=== PATIENT | female | born 1960 | race Two or more races ===

== ENCOUNTER → 2018-05-14 | Outpatient (CLI) | payer BC ==
[2018-05-14 12:15] LABS: Basophils # (auto) 0.1 uL; Eosinophils # (auto) 0.1 uL; Eosinophils % (auto) 2.8 % (0.0-7.0); Hematocrit 44.2 % (36.0-46.0); Hemoglobin 14.6 g/dL (12.2-16.2); Lymphocytes # (auto) 1.5 uL; Lymphocytes % (auto) 29.6 % (10.0-50.0); Mean Corpuscular Hemoglobin 32.4 pg (28.0-32.0); Mean Corpuscular Hgb Conc. 33.1 g/dL (32.0-36.0); Monocytes # (auto) 0.4 uL; Monocytes % (auto) 7.4 % (0.0-12.0); Neutrophils # (auto) 3.1 uL; Neutrophils % (auto) 59.2 % (37.0-80.0); Nucleated Red Blood Cells % 0.1 %; Platelet Count (auto) 263 10^3/uL (140-450); Red Blood Cells 4.51 10^6/uL (4.0-5.20); Red Cell Distribution Width 13.6 % (11.8-14.3); White Blood Cell 5.2 10^3/uL (4.4-10.8)
[2018-05-14 12:49] LABS: Potassium 4.1 mmol/L (3.5-5.1)
[2018-05-14 12:58] LABS: Albumin 3.8 g/dL (3.4-5.0); BUN/Creatinine Ratio 12.5; Bilirubin, Total 0.3 mg/dL (0.2-1.0); Calcium 8.7 mg/dL (8.5-10.1); Total Protein 7.5 g/dL (6.4-8.2)
== END | disposition home or self-care (01) ==
LOC: LAB 11:31
PROVIDERS: ATTEND Internal Medicine
DX: Z00.01 Encounter for general adult medical examination with abnormal findings (principal); E78.5 Hyperlipidemia, unspecified
CPT/HCPCS: 36415; 80053; 80061; 83036; 85025

== ENCOUNTER → 2018-07-23 | Outpatient (CLI) | payer BC ==
[~2018-07-23] VITALS: Ht 177.8 cm; Wt 93.0 kg
== END | disposition home or self-care (01) ==
LOC: Rad HDHVI 07:32
PROVIDERS: ATTEND Internal Medicine Cardiovascular Disease
DX: I08.1 Rheumatic disorders of both mitral and tricuspid valves (principal); I20.9 Angina pectoris, unspecified; R74.8 Abnormal levels of other serum enzymes; K57.90 Diverticulosis of intestine, part unspecified, without perforation or abscess without bleeding
CPT/HCPCS: 78452; 93017; 93306; 96374; A9500

== ENCOUNTER → 2018-09-07 | Outpatient (CLI) | payer BC | END | disposition home or self-care (01) | LOC: LAB 16:27 | PROVIDERS: ATTEND Physician Assistant | DX: E78.5 Hyperlipidemia, unspecified (principal); F41.9 Anxiety disorder, unspecified; R53.83 Other fatigue | CPT/HCPCS: 36415; 82306; 82670; 84443 ==

== ENCOUNTER → 2019-02-16 | Outpatient (CLI) | payer BC ==
[2019-02-16 10:29] LABS: Follicle Stimulating Hormone 37.2 IU/L (SEE BELOW); Leuteinizing Hormone 15.1 IU/L
== END | disposition home or self-care (01) ==
LOC: LAB 09:38
PROVIDERS: ATTEND Specialist
DX: N95.1 Menopausal and female climacteric states (principal)
CPT/HCPCS: 36415; 82670; 83001; 83002; 84443; 86141

== ENCOUNTER 2019-04-10 17:59 | Emergency (ER) | payer BC ==
[~2019-04-10] VITALS: Ht 177.8 cm; Wt 93.0 kg
[2019-04-10 18:30] LABS: Basophils # (auto) 0 uL; Basophils % (auto) 0.6 % (0.0-2.0); Eosinophils # (auto) 0.3 uL; Eosinophils % (auto) 3.7 % (0.0-7.0); Hematocrit 42.1 % (36.0-46.0); Hemoglobin 14.1 g/dL (12.2-16.2); Lymphocytes # (auto) 1.5 uL; Lymphocytes % (auto) 22.5 % (10.0-50.0); Mean Corpuscular Hemoglobin 32.8 pg (28.0-32.0); Mean Corpuscular Hgb Conc. 33.4 g/dL (32.0-36.0); Mean Corpuscular Volume 98.1 fL (80.0-100.0); Monocytes # (auto) 0.4 uL; Monocytes % (auto) 5.2 % (0.0-12.0); Neutrophils # (auto) 4.7 uL; Nucleated Red Blood Cells % 0.1 %; Platelet Count (auto) 270 10^3/uL (140-450); Red Blood Cells 4.29 10^6/uL (4.0-5.20); Red Cell Distribution Width 12.7 % (11.8-14.3); White Blood Cell 6.9 10^3/uL (4.4-10.8)
[2019-04-10 18:47] LABS: Anion Gap 4 (5-15); Blood Urea Nitrogen 17 mg/dL (7-18); Calcium 9.3 mg/dL (8.5-10.1); Carbon Dioxide 27 mmol/L (21-32); Chloride 108 mmol/L (98-107); Glucose 100 mg/dL (74-106); Potassium 3.9 mmol/L (3.5-5.1); Sodium 139 mmol/L (136-145)
[2019-04-10 18:55] LABS: Alanine Aminotransferase 29 U/L (13-56); Alkaline Phosphatase 85 U/L (45-117); Aspartate Aminotransferase 27 U/L (15-37); BUN/Creatinine Ratio 20.2; Bilirubin, Total 0.3 mg/dL (0.2-1.0); GFR African American 90 mL/min; GFR Non-African American 74 mL/min; Total Protein 7.8 g/dL (6.4-8.2)
[2019-04-10 21:15] VITALS: BP 121/56
== END 2019-04-10 21:38 | disposition home or self-care (01) ==
LOC: ER 17:59
DX: R07.89 Other chest pain (principal); M54.6 Pain in thoracic spine
CPT/HCPCS: 36415; 71046; 80053; 84484; 85025

== ENCOUNTER 2019-09-20 07:11 | Inpatient (IN) | payer BC ==
[2019-09-16 11:00] LABS: Basophils # (auto) 0 10 ^3/uL (0-0.2); Basophils % (auto) 0.5 % (0.0-2.0); Eosinophils # (auto) 0.1 10 ^3/uL (0-0.8); Eosinophils % (auto) 1.1 % (0.0-7.0); Hematocrit 40.8 % (36.0-46.0); Hemoglobin 13.6 g/dL (12.2-16.2); Lymphocytes # (auto) 1.5 10 ^3/uL (0.4-5.4); Lymphocytes % (auto) 27.1 % (10.0-50.0); Mean Corpuscular Hemoglobin 32.7 pg (28.0-32.0); Mean Corpuscular Hgb Conc. 33.4 g/dL (32.0-36.0); Monocytes # (auto) 0.4 10 ^3/uL (0-1.3); Neutrophils # (auto) 3.4 10 ^3/uL (1.6-8.6); Neutrophils % (auto) 63.3 % (37.0-80.0); Nucleated Red Blood Cells % 0.1 %; Platelet Count (auto) 283 10^3/uL (140-450); Red Blood Cells 4.17 10^6/uL (4.0-5.20); Red Cell Distribution Width 12.8 % (11.8-14.3); White Blood Cell 5.4 10^3/uL (4.4-10.8)
[2019-09-16 11:08] LABS: Urine Bacteria NONE SEEN /hpf (None Seen); Urine Blood Negative /uL (Negative); Urine Specific Gravity 1.013 (1.001-1.035); Urine WBC <1 /hpf (0 - 5)
[2019-09-16 11:13] LABS: INR 1.01 (0.9-1.15); Partial Thromboplastin Time 27.1 sec (23.64-32.05)
[2019-09-16 11:24] LABS: Potassium 3.8 mmol/L (3.5-5.1)
[2019-09-16 11:39] LABS: Albumin 3.9 g/dL (3.4-5.0); BUN/Creatinine Ratio 12.5; Bilirubin, Total 0.5 mg/dL (0.2-1.0); Calcium 8.8 mg/dL (8.5-10.1); Total Protein 7.7 g/dL (6.4-8.2)
[~2019-09-20] VITALS: Ht 177.8 cm; Wt 110.0 kg
[~2019-09-20 07:11] MED LIST: ALPR0.5T PO; CONJ.6252 PO; TRAM50TA2 PO
[2019-09-20] MEDS ORDERED: CELECOXIB 100 MG CAP ONE (08:25)
[2019-09-20] MEDS ORDERED: PREGABALIN CAPSULE 75 MG CAP ONE (08:25)
[2019-09-20] MEDS ORDERED: ACETAMINOPHEN IV 100 ML IV ONE (08:25)
[2019-09-20] MEDS ORDERED: ACETAMINOPHEN IV 1000 MG/100ML (10MG/ML) IV ONE (08:30)
[2019-09-20] MEDS ORDERED: PREGABALIN CAPSULE 75 MG CAP PO ONE (08:30)
[2019-09-20] MEDS ORDERED: VANCOMYCIN HCL 1000 MG VL ONE (09:30)
[2019-09-20] MEDS ORDERED: BUPIVACAINE W/ EPINEPH 0.25% INJ 50ML MDV ONE (09:33)
[2019-09-20] MEDS ORDERED: TRANEXAMIC ACID 20 ML ONE (09:33)
[2019-09-20] MEDS ORDERED: KETOROLAC TROMETH 30 MG/ML 1ML VIAL ONE (09:35)
[2019-09-20] MEDS ORDERED: MIDAZOLAM HCL 1MG/1ML-2 ML VIAL ONE (09:41)
[2019-09-20] MEDS ORDERED: MORPHINE SULF(PF) 0.5MG/ML 10ML VIAL ONE (09:41)
[2019-09-20] MEDS ORDERED: fentaNYL CITRATE 100 MCG/2 ML VL ONE (09:41)
[2019-09-20] MEDS ORDERED: GLYCOPYRROLATE 0.2 MG/ML 1ML VIAL ONE (09:42)
[2019-09-20] MEDS ORDERED: PROPOFOL 10 MG/ML 20 ML IV ONE (09:42)
[2019-09-20] MEDS ORDERED: ePHEDrine SULFATE 50 MG/ML AMP ONE (09:42)
[2019-09-20] MEDS ORDERED: ONDANSETRON HCL 4 MG/2 ML VIAL ONE (09:42)
[2019-09-20] MEDS: ceFAZolin 1GM/50ML 50 ML IV ONE ×2 (09:51)
[2019-09-20] MEDS ORDERED: TETRACAINE 1% INJ 2 ML VIAL IJ ONE (09:54)
[2019-09-20] MEDS ORDERED: diphenhdrAMINE HCL 50 MG/1 ML VL ONE (10:14)
[2019-09-20] MEDS ORDERED: KETAMINE HCL 10 ML ONE (10:21)
[2019-09-20] MEDS ORDERED: LACTATED RINGER'S 1,000 ML IV SCH (11:41)
[2019-09-20] MEDS ORDERED: ALPRAZolam 0.5 MG TAB PO PRN ×2 (11:45)
[2019-09-20] MEDS ORDERED: MORPHINE SULF INJ 2 MG/ML SYRINGE 1ML IV PRN (11:45)
[2019-09-20] MEDS ORDERED: ACETAMINOPHEN 325 MG TAB PO PRN (11:45)
[2019-09-20] MEDS ORDERED: BISACODYL 5 MG EC TAB PO PRN (11:45)
[2019-09-20] MEDS ORDERED: NITROGLYCERIN 0.4 MG SL TAB SL PRN (11:45)
[2019-09-20] MEDS ORDERED: ONDANSETRON HCL 4 MG/2 ML VIAL IV PRN ×2 (11:45→12:45)
[2019-09-20] MEDS ORDERED: KETOROLAC TROMETH 30 MG/ML 1ML VIAL IV SCH (12:00)
[2019-09-20] MEDS ORDERED: MEPERIDINE HCL (25 MG/ML) 1ML VIAL ONE (12:14)
[2019-09-20] MEDS ORDERED: ENOXAPARIN SOD 40 MG/0.4 ML SYRINGE SC ONE (12:15)
[2019-09-20] MEDS ORDERED: FAMOTIDINE (10MG/ML) 2ML VL IV PRN (12:45)
[2019-09-20] MEDS ORDERED: NALBUPHINE HCL 10 MG/1ml INJECTION SUBCUT ONE (12:45)
[2019-09-20] MEDS ORDERED: NALOXONE HCL 0.4 MG/ML VIAL IV PRN (12:45)
[2019-09-20] MEDS ORDERED: diphenhdrAMINE HCL 50 MG/1 ML VL IV PRN (12:45)
[2019-09-20] MEDS ORDERED: DexAMETHasone SOD PHOS 10MG/1ML VIAL INJ IV PRN (12:45)
[2019-09-20] MEDS: HYDROmorphone HCL 2 MG/ML VL IV PRN ×2 (15:30→19:51)
--- NOTE | 2019-09-20 17:40 | NUR ---
OR ADMIT PATIENT BROUGHT TO ROOM 280B. VITALS STABLE. PATIENT PLACED ON OXYGEN, CONTINUOS PULSE OX. CPM TO LEFT LEG. DENIES DISCOMFORT. WILL CONTINUE TO MONITOR.
[2019-09-20] MEDS: ONDANSETRON HCL 4 MG/2 ML VIAL IV PRN ×2 (18:41→22:15)
--- NOTE | 2019-09-20 19:55 | NUR ---
PT ON CPM AT 45 DEGREES
[2019-09-20 19:58] VITALS: BP 141/79
[2019-09-20] MEDS: DOCUSATE SOD 100 MG CAP PO SCH (21:53)
[2019-09-20] MEDS: KETOROLAC TROMETH 30 MG/ML 1ML VIAL IV SCH (21:53)
[2019-09-20] MEDS: ceFAZolin 1GM/50ML 50 ML IV SCH ×2 (21:53→23:45)
[2019-09-20 22:00] VITALS: BP 111/88
[2019-09-20] MEDS: SODIUM CHLOR 0.9% PF (SALINE LOCK) 10ML VIAL/SYR IV SCH (22:02)
[2019-09-21] MEDS: HYDROcodone-ACET 5/325MG TAB PO PRN ×2 (02:41→10:43)
[2019-09-21] MEDS ORDERED: ceFAZolin 1GM/50ML 50 ML IV ONE (03:50)
[2019-09-21] MEDS: ceFAZolin 1GM/50ML 50 ML IV SCH (03:52)
[2019-09-21] MEDS: KETOROLAC TROMETH 30 MG/ML 1ML VIAL IV SCH ×4 (03:53→21:22)
[2019-09-21 05:00] VITALS: BP 116/59
[2019-09-21] MEDS: ONDANSETRON HCL 4 MG/2 ML VIAL IV PRN (05:27)
[2019-09-21] MEDS: HYDROmorphone HCL 2 MG/ML VL IV PRN (05:27)
--- NOTE | 2019-09-21 06:18 | NUR ---
[facility] CATH DISCONTINUED BY MARIAH OBANDO
[2019-09-21] MEDS: SODIUM CHLOR 0.9% PF (SALINE LOCK) 10ML VIAL/SYR IV SCH ×3 (06:19→22:33)
--- NOTE | 2019-09-21 06:31 | NUR ---
PT BACK ON CPM ANGLE INCREASED BY 15 DEGREES FROM 45 TO 60. PT TOLERATED IT WELL. LEFT KNEE DRESSING CLEAN DRY AND INTACT.
[2019-09-21 06:49] LABS: Hematocrit 34.4 % (36.0-46.0); Hemoglobin 11.7 g/dL (12.2-16.2)
[2019-09-21 07:07] LABS: Potassium 3.9 mmol/L (3.5-5.1)
--- NOTE | 2019-09-21 07:28 | NUR ---
Respiratory note: PT FOUND TO BE AWAKE/ALERT SITTING IN BED WITH NO NOTED DISTRESS. HR 78 RR 16 SPO2 98% ON 2L N/C. PT IS CONNECTED TO CONT BEDSIDE POX.
[2019-09-21 07:37] LABS: Albumin 3.2 g/dL (3.4-5.0); Bilirubin, Total 0.5 mg/dL (0.2-1.0); Calcium 8.2 mg/dL (8.5-10.1); Total Protein 6.4 g/dL (6.4-8.2)
[2019-09-21 09:00] VITALS: BP 106/66
[2019-09-21] MEDS: DOCUSATE SOD 100 MG CAP PO SCH ×2 (09:38→22:33)
[2019-09-21] MEDS: ENOXAPARIN SOD 40 MG/0.4 ML SYRINGE SC SCH (09:38)
--- NOTE | 2019-09-21 11:15 | NUR ---
Respiratory note: OK TO PULL BEDSIDE CONT POX PER RN MAYUR
[2019-09-21] MEDS ORDERED: HYDROmorphone HCL 2 MG/ML VL IV PRN (13:00)
[2019-09-21] MEDS: OXYCODONE W/ ACETAMINOPHEN 5/325MG TABLET PO PRN ×4 (13:30→23:36)
[2019-09-21 17:00] VITALS: BP 123/86
--- NOTE | 2019-09-21 18:51 | NUR ---
PATIENT CAN TAKE CPM MACHINE HOME ON DISCHARGE AND RETURN TO [facility] WHEN DONE WITH IT.
[2019-09-21] MEDS: traMADol HCL 50 MG TAB PO PRN (19:24)
[2019-09-21 20:00] VITALS: BP 115/65
--- NOTE | 2019-09-21 20:00 | NUR ---
Opening Shift Note Assumed care of patient, awake and alert. No S/S of distress/SOB or pain. Instructed on POC and to call for assist PRN, will continue to monitor for changes Q1hr and PRN.
--- NOTE | 2019-09-21 20:24 | NUR ---
RE PAIN PATIENT STATED "MY PAIN IS TOLERABLE, IM OKAY 04/26"
[2019-09-21 22:00] VITALS: BP 115/65
--- NOTE | 2019-09-21 23:36 | NUR ---
Pain Patient c/o pain 6/10 to left knee, pain medication administered.
--- NOTE | 2019-09-22 00:36 | NUR ---
Re Pain patient resting with eyes closed, no sign of pain or distress, will continue to monitor.
[2019-09-22] MEDS: traMADol HCL 50 MG TAB PO PRN ×2 (03:47→09:23)
--- NOTE | 2019-09-22 03:47 | NUR ---
Pain Patient c/o pain 3/10 to left knee, pain medication administered.
--- NOTE | 2019-09-22 04:47 | NUR ---
Re Pain patient resting with eyes closed, no sign of pain or distress
[2019-09-22 05:00] VITALS: BP 105/53
[2019-09-22] MEDS: SODIUM CHLOR 0.9% PF (SALINE LOCK) 10ML VIAL/SYR IV SCH (05:38)
[2019-09-22] MEDS: OXYCODONE W/ ACETAMINOPHEN 5/325MG TABLET PO PRN (05:39)
--- NOTE | 2019-09-22 05:39 | NUR ---
Pain Patient c/o pain 6/10 to left knee, pain medication administered.
--- NOTE | 2019-09-22 06:39 | NUR ---
Re Pain Patient resting with eyes closed, no sign of pain or distress. will continue to monitor.
--- NOTE | 2019-09-22 07:29 | NUR ---
Closing Note Patient status has not changed, endorsed care to dayshift nurse.
--- NOTE | 2019-09-22 07:35 | NUR ---
Opening Note Received report from cook fishing vessel RN. Patient is awake, alert and oriented x4. No signs or symptoms of distress noted at this time. Patient in on room air, respirations even and unlabored. Dressing to left knee is clean, dry and intact. Reviewed plan of care with patient, patient verbalized understanding. Bed in low and locked position, call light within reach. Will continue to monitor Q1 hour and PRN.
[2019-09-22 08:18] LABS: Hematocrit 34.1 % (36.0-46.0); Hemoglobin 11.3 g/dL (12.2-16.2)
[2019-09-22 09:00] VITALS: BP 137/80
--- NOTE | 2019-09-22 09:09 | NUR ---
Assessment Patient is a 59-year-old female who is alert and oriented. Prior to admission patient lived home with family and functioned independently. Per patient she will return home to her prior living arrangements post discharge and family will transport her home. Advised patient there is a social service consult for home health service for physical therapy, bed side commode and walker. Patient informed me she has a bed side commode and a walker for home use. Per patient she is on service with [facility] and would like to resume service with agency. Informed patient clinical information will be faxed agency. Informed patient she has a right to participate in all discharge planning. Patient verbalized understanding and agreed to discharge plan home. Faxed clinical information to [facility]. Per Vickie with [facility] they will resume service for patient within 24-48hrs upon d/c day. Informed Patient. Addendum: 09/22/19 at 0915 by ANA BARAHONA Amended: Links added.
[2019-09-22] MEDS: DOCUSATE SOD 100 MG CAP PO SCH (09:23)
[2019-09-22] MEDS: ENOXAPARIN SOD 40 MG/0.4 ML SYRINGE SC SCH (09:24)
--- NOTE | 2019-09-22 11:00 | NUR ---
Discharge Discharge instructions given as ordered. Encourage to follow up with PMD as instructed. All questions and concerns addressed. Patient verbalized understanding. Medication reconciliation form completed and copy given to patient. Telemetry unit returned to ICU. Per patient she arranged [facility] and all necessary equipment has been delivered to her home. Patient taken to vehicle via wheelchair with all personal belongings, accompanied by staff. No distress noted at time of departure. Prescriptions were filled at [facility].
== END 2019-09-22 11:00 | disposition home or self-care (01) | DRG 470 ==
LOC: OVERFLOW 07:11 → TELE-WESTW 17:37
PROVIDERS: ADMIT Orthopaedic Surgery Adult Reconstructive Orthopaedic Surgery; ATTEND Internal Medicine
PROC: 0SRD0J9 Replacement of Left Knee Joint with Synthetic Substitute, Cemented, Open Approach (ICD-10-PCS; principal; 2019-09-20 09:51)
DX: M17.12 Unilateral primary osteoarthritis, left knee (principal); F41.9 Anxiety disorder, unspecified; E66.9 Obesity, unspecified; Z20.828 Contact with and (suspected) exposure to other viral communicable diseases; Z68.34 Body mass index [BMI] 34.0-34.9, adult; Z88.2 Allergy status to sulfonamides
CPT/HCPCS: 36415; 73562; 80053; 81001; 85014; 85018; 85025; 85610; 85730; 86850; 86900; 86901; 97163; G0378; J0131; J0690; J1885; J2250; J2405; J2704

== ENCOUNTER → 2020-03-07 | Outpatient (CLI) | payer BC | END | disposition home or self-care (01) | LOC: LAB 12:04 | PROVIDERS: ATTEND Physician Assistant | DX: Z20.828 Contact with and (suspected) exposure to other viral communicable diseases (principal) | CPT/HCPCS: 36415; 87426; C9803; U0003 ==

== ENCOUNTER → 2021-01-03 | Outpatient (CLI) | payer BC ==
[2021-01-03 08:47] LABS: Basophils # (auto) 0 10 ^3/uL (0-0.2); Basophils % (auto) 0.8 % (0.0-2.0); Eosinophils # (auto) 0.1 10 ^3/uL (0-0.8); Eosinophils % (auto) 1.1 % (0.0-7.0); Hematocrit 39.5 % (36.0-46.0); Hemoglobin 13.3 g/dL (12.2-16.2); Lymphocytes # (auto) 1.1 10 ^3/uL (0.4-5.4); Lymphocytes % (auto) 23.1 % (10.0-50.0); Mean Corpuscular Hemoglobin 33.3 pg (28.0-32.0); Mean Corpuscular Hgb Conc. 33.6 g/dL (32.0-36.0); Mean Corpuscular Volume 99.1 fL (80.0-100.0); Monocytes # (auto) 0.3 10 ^3/uL (0-1.3); Monocytes % (auto) 6.7 % (0.0-12.0); Neutrophils # (auto) 3.3 10 ^3/uL (1.6-8.6); Neutrophils % (auto) 68.3 % (37.0-80.0); Red Blood Cells 3.98 10^6/uL (4.0-5.20); White Blood Cell 4.9 10^3/uL (4.4-10.8)
[2021-01-03 10:00] LABS: Cholesterol 209 mg/dL (< 200); HDL Cholesterol 79 mg/dL (40-59); LDL Cholesterol 116 mg/dL (< 100); Triglycerides 76 mg/dL (< 150)
[2021-01-03 10:05] LABS: Leuteinizing Hormone 26.6 IU/L
[2021-01-03 10:06] LABS: Follicle Stimulating Hormone 34.1 IU/L (SEE BELOW)
== END | disposition home or self-care (01) ==
LOC: LAB 08:24
PROVIDERS: ATTEND Obstetrics & Gynecology
DX: Z00.00 Encounter for general adult medical examination without abnormal findings (principal); N95.1 Menopausal and female climacteric states
CPT/HCPCS: 36415; 80061; 82670; 83001; 83002; 83036; 84403; 84443; 85025; 87086

== ENCOUNTER 2021-09-04 09:56 | Day surgery (SDC) | payer BC ==
[2021-08-31 09:18] LABS: Basophils # (auto) 0 10 ^3/uL (0-0.2); Basophils % (auto) 0.3 % (0.0-2.0); Eosinophils # (auto) 0.1 10 ^3/uL (0-0.8); Eosinophils % (auto) 0.9 % (0.0-7.0); Hematocrit 41.6 % (36.0-46.0); Hemoglobin 14.2 g/dL (12.2-16.2); Lymphocytes # (auto) 1.2 10 ^3/uL (0.4-5.4); Lymphocytes % (auto) 21.1 % (10.0-50.0); Mean Corpuscular Hemoglobin 33.2 pg (28.0-32.0); Mean Corpuscular Hgb Conc. 34.1 g/dL (32.0-36.0); Mean Corpuscular Volume 97.2 fL (80.0-100.0); Monocytes # (auto) 0.4 10 ^3/uL (0-1.3); Monocytes % (auto) 6.9 % (0.0-12.0); Neutrophils # (auto) 4.2 10 ^3/uL (1.6-8.6); Neutrophils % (auto) 70.8 % (37.0-80.0); Red Blood Cells 4.28 10^6/uL (4.0-5.20); Red Cell Distribution Width 12.6 % (11.8-14.3); White Blood Cell 5.9 10^3/uL (4.4-10.8)
[2021-08-31 09:49] LABS: Albumin 4.1 g/dL (3.4-5.0); Calcium 9.2 mg/dL (8.5-10.1); INR 0.98 (0.9-1.15); Partial Thromboplastin Time 26.9 sec (23.6-33.0); Potassium 4.4 mmol/L (3.5-5.1)
[2021-08-31 09:53] LABS: BUN/Creatinine Ratio 9.8; Bilirubin, Total 0.4 mg/dL (0.2-1.0)
[~2021-09-04] VITALS: Ht 177.8 cm; Wt 94.8 kg
[~2021-09-04 09:56] MED LIST changes: -TRAM50TA2 PO
[2021-09-04] MEDS ORDERED: diphenhdrAMINE HCL 50 MG/1 ML VL ONE (10:17)
[2021-09-04] MEDS ORDERED: MIDAZOLAM HCL 5 MG/ML-1ML VIAL ONE (10:17)
[2021-09-04] MEDS ORDERED: SODIUM CHLORIDE LOCK 10 ML ONE (10:17)
[2021-09-04] MEDS ORDERED: fentaNYL CITRATE 100 MCG/2 ML VL ONE ×2 (10:18→11:01)
[2021-09-04] MEDS ORDERED: MIDAZOLAM HCL 2MG/2ML 2ml VIAL (1mg/ml) ONE (11:01)
[2021-09-04] MEDS ORDERED: MEPERIDINE HCL (25 MG/ML) 1ML VIAL ONE (11:01)
[2021-09-04] MEDS ORDERED: DexAMETHasone SOD PHOS 10MG/1ML VIAL INJ ONE (11:59)
[2021-09-04] MEDS ORDERED: PROPOFOL 10 MG/ML 20 ML IV ONE (11:59)
[2021-09-04 12:30] VITALS: BP 118/70
== END 2021-09-04 12:40 | disposition home or self-care (01) ==
LOC: GI 09:56
PROVIDERS: ATTEND Internal Medicine Gastroenterology
DX: Z12.11 Encounter for screening for malignant neoplasm of colon (principal); D12.0 Benign neoplasm of cecum; K57.30 Diverticulosis of large intestine without perforation or abscess without bleeding; K64.8 Other hemorrhoids; F41.9 Anxiety disorder, unspecified; F32.A Depression, unspecified; Z96.653 Presence of artificial knee joint, bilateral; Z98.891 History of uterine scar from previous surgery; Z88.1 Allergy status to other antibiotic agents; Z20.822 Contact with and (suspected) exposure to COVID-19
CPT/HCPCS: 36415; 45385; 80053; 85025; 85610; 85730; 88305; J1100; J2175; J2250; J2704; J3010; J7030; U0003; 99152; 99153

== ENCOUNTER → 2022-05-20 | Outpatient (CLI) | payer BC | END | disposition home or self-care (01) | LOC: LAB 08:23 | PROVIDERS: ATTEND Obstetrics & Gynecology | DX: Z79.890 Hormone replacement therapy (principal) | CPT/HCPCS: 36415; 82306; 82670; 84403 ==

== ENCOUNTER 2022-12-02 10:54 | Emergency (ER) | payer BC ==
[~2022-12-02] VITALS: Ht 177.8 cm; Wt 94.0 kg
[2022-12-02 12:07] VITALS: BP 148/80; PULSE 88; RESP 18; TEMP 97.6; O2SAT 95
== END 2022-12-02 14:07 | disposition home or self-care (01) ==
LOC: ER 10:54
DX: M25.552 Pain in left hip (principal); M25.562 Pain in left knee; W19.XXXA Unspecified fall, initial encounter; Y93.89 Activity, other specified; Y92.89 Other specified places as the place of occurrence of the external cause; Y99.8 Other external cause status; Z88.2 Allergy status to sulfonamides
CPT/HCPCS: 73562; 73700

== ENCOUNTER → 2023-03-03 | Outpatient (CLI) | payer BC ==
[2023-03-03 07:09] LABS: Urine Bacteria FEW /hpf (None Seen); Urine Blood Negative /uL (Negative); Urine Clarity Clear (Clear); Urine Color Yellow (Yellow); Urine Mucus FEW (None Seen); Urine Protein, UAD 1+ (Negative); Urine Specific Gravity 1.034 (1.001-1.035); Urine WBC 1 /hpf (0 - 5)
[2023-03-03 07:22] LABS: Basophils # (auto) 0 10 ^3/uL (0-0.2); Basophils % (auto) 0.5 % (0.0-2.0); Eosinophils # (auto) 0.1 10 ^3/uL (0-0.8); Hematocrit 40.8 % (36.0-46.0); Hemoglobin 13.8 g/dL (12.2-16.2); Lymphocytes # (auto) 1.6 10 ^3/uL (0.4-5.4); Lymphocytes % (auto) 28.8 % (10.0-50.0); Mean Corpuscular Hemoglobin 33.8 pg (28.0-32.0); Mean Corpuscular Hgb Conc. 33.7 g/dL (32.0-36.0); Mean Corpuscular Volume 100.1 fL (80.0-100.0); Monocytes # (auto) 0.5 10 ^3/uL (0-1.3); Monocytes % (auto) 9.2 % (0.0-12.0); Neutrophils # (auto) 3.4 10 ^3/uL (1.6-8.6); Neutrophils % (auto) 59.5 % (37.0-80.0); Red Blood Cells 4.08 10^6/uL (4.0-5.20); Red Cell Distribution Width 13.3 % (11.8-14.3); White Blood Cell 5.7 10^3/uL (4.4-10.8)
[2023-03-03 07:35] LABS: Alanine Aminotransferase 57 U/L (7-40); Albumin 4.3 g/dL (3.2-4.8); Alkaline Phosphatase 80 U/L (46-116); Aspartate Aminotransferase 28 U/L (13-40); BUN/Creatinine Ratio 17.4 (10.0-20.0); Blood Urea Nitrogen 12 mg/dL (9-23); Calcium 9.5 mg/dL (8.5-10.1); Chloride 107 mmol/L (98-107); Cholesterol 202 mg/dL (< 200); Glucose 96 mg/dL (74-106); HDL Cholesterol 55 mg/dL (40-59); LDL Cholesterol 138 mg/dL (< 100); Potassium 4.3 mmol/L (3.5-5.1); Sodium 140 mmol/L (136-145); Triglycerides 99 mg/dL (< 150)
[2023-03-03 07:36] LABS: Anion Gap 7 (5-15); Bilirubin, Total 0.3 mg/dL (0.2-1.0); Carbon Dioxide 26 mmol/L (20-30); Total Protein 6.8 g/dL (5.7-8.2)
== END | disposition home or self-care (01) ==
LOC: LAB 06:27
PROVIDERS: ATTEND Nurse Practitioner
DX: I10 Essential (primary) hypertension (principal); E78.5 Hyperlipidemia, unspecified; R79.89 Other specified abnormal findings of blood chemistry
CPT/HCPCS: 36415; 80053; 80061; 81001; 83036; 84443; 85025

== ENCOUNTER 2023-03-31 06:03 | Inpatient (IN) | payer BC ==
[2023-03-27 10:07] LABS: Urine Epithelial Cast None Seen /hpf (<5)
[2023-03-27 10:14] LABS: Basophils # (auto) 0 10 ^3/uL (0-0.2); Basophils % (auto) 0.2 % (0.0-2.0); Eosinophils # (auto) 0.1 10 ^3/uL (0-0.8); Hematocrit 42.5 % (36.0-46.0); Hemoglobin 14.4 g/dL (12.2-16.2); Lymphocytes % (auto) 12.4 % (10.0-50.0); Mean Corpuscular Hemoglobin 33.7 pg (28.0-32.0); Mean Corpuscular Hgb Conc. 33.9 g/dL (32.0-36.0); Mean Corpuscular Volume 99.3 fL (80.0-100.0); Monocytes # (auto) 0.6 10 ^3/uL (0-1.3); Monocytes % (auto) 7.8 % (0.0-12.0); Neutrophils # (auto) 6.3 10 ^3/uL (1.6-8.6); Neutrophils % (auto) 78.6 % (37.0-80.0); Red Blood Cells 4.28 10^6/uL (4.0-5.20); Red Cell Distribution Width 12.8 % (11.8-14.3); White Blood Cell 8.1 10^3/uL (4.4-10.8)
[2023-03-27 10:36] LABS: INR 0.98 (0.9-1.15); Partial Thromboplastin Time 29.9 SEC (24.5-34.5); Prothrombin Time 10.3 sec (9.3-11.8)
[2023-03-27 11:09] LABS: Urine Bacteria NONE SEEN /hpf (None Seen); Urine Blood Negative /uL (Negative); Urine Clarity Clear (Clear); Urine Color Yellow (Yellow); Urine Mucus FEW (None Seen); Urine Protein, UAD TRACE (Negative); Urine Specific Gravity 1.029 (1.001-1.035); Urine WBC <1 /hpf (0 - 5)
[2023-03-27 11:24] LABS: Alanine Aminotransferase 22 U/L (7-40); Albumin 4.7 g/dL (3.2-4.8); Alkaline Phosphatase 89 U/L (46-116); Anion Gap 7 (5-15); Aspartate Aminotransferase 26 U/L (13-40); BUN/Creatinine Ratio 13.3 (10.0-20.0); Bilirubin, Total 0.6 mg/dL (0.2-1.0); Blood Urea Nitrogen 10 mg/dL (9-23); Carbon Dioxide 28 mmol/L (20-30); Chloride 103 mmol/L (98-107); Glucose 83 mg/dL (74-106); Potassium 4.1 mmol/L (3.5-5.1); Sodium 138 mmol/L (136-145); Total Protein 7.4 g/dL (5.7-8.2)
[2023-03-31] VITALS (12 sets, daily range): BP systolic 101–145; BP diastolic 56–84; PULSE 64–93; RESP 14–19; TEMP 97.6–98.8; O2SAT 93–100
[~2023-03-31] VITALS: Ht 175.3 cm; Wt 101.0 kg
[~2023-03-31 06:03] MED LIST changes: -ALPR0.5T PO; -CONJ.6252 PO; +PROG200C21 PO; +THYR60TA2 PO
[2023-03-31] MEDS ORDERED: ACETAMINOPHEN IV 1000 MG/100ML (10MG/ML) IV ONE (06:30)
[2023-03-31] MEDS ORDERED: PREGABALIN CAPSULE 75 MG CAP PO ONE (06:30)
[2023-03-31] MEDS ORDERED: CELECOXIB 100 MG CAP PO ONE (06:30)
[2023-03-31] MEDS ORDERED: TETRACAINE 1% INJ 2 ML VIAL IJ ONE ×2 (06:32→07:17)
[2023-03-31] MEDS ORDERED: SUCCINYLCHOLINE CHLORIDE 20 MG/ML 10ML VIAL IV ONE (06:32)
[2023-03-31] MEDS ORDERED: ROCURONIUM 10MG/ML 10ML VIAL IV ONE (06:32)
[2023-03-31] MEDS ORDERED: ceFAZolin 2 GM/D5W100ml 100 ML IV ONE (06:50)
[2023-03-31] MEDS ORDERED: TRANEXAMIC ACID 20 ML ONE (07:07)
[2023-03-31] MEDS ORDERED: BUPIVACAINE HCL 0 ML ONE (07:07)
[2023-03-31] MEDS ORDERED: LIDOCAINE W/ EPINEPHRINE 2% INJ 20ML VIAL ONE (07:07)
[2023-03-31] MEDS ORDERED: VANCOMYCIN HCL 1000 MG VL ONE (07:08)
[2023-03-31] MEDS ORDERED: KETOROLAC TROMETH 30 MG/ML 1ML VIAL ONE (07:19)
[2023-03-31] MEDS ORDERED: BUPIVACAINE HCL 0.25% P/F 10 ML VIAL ONE (07:21)
[2023-03-31] MEDS ORDERED: fentaNYL CITRATE 100 MCG/2 ML VL ONE (07:22)
[2023-03-31] MEDS ORDERED: MIDAZOLAM HCL 2MG/2ML 2ml VIAL (1mg/ml) ONE ×2 (07:22→09:05)
[2023-03-31] MEDS ORDERED: MORPHINE SULF PF 5 MG/10 ML VIAL ONE (07:23)
[2023-03-31] MEDS ORDERED: DexAMETHasone SOD PHOS 4 MG/1ML SDV INJ ONE (08:32)
[2023-03-31] MEDS ORDERED: SODIUM CHLORIDE LOCK 10 ML ONE (08:41)
[2023-03-31] MEDS ORDERED: ACETAMINOPHEN 325 MG TAB PO PRN (08:45)
[2023-03-31] MEDS ORDERED: MORPHINE SULFATE INJ 2 MG/ml SYRG IV PRN ×2 (08:45→10:15)
[2023-03-31] MEDS ORDERED: ONDANSETRON HCL 4 MG/2 ML VIAL IV PRN ×3 (08:45→09:45)
[2023-03-31] MEDS ORDERED: NITROGLYCERIN 0.4 MG SL TAB SL PRN ×2 (08:45→10:15)
[2023-03-31] MEDS: ceFAZolin 1GM/50ML 50 ML IV SCH ×3 (08:45→22:31)
[2023-03-31] MEDS: LACTATED RINGER'S 1,000 ML IV SCH ×2 (08:45→16:46)
[2023-03-31] MEDS ORDERED: DexAMETHasone SOD PHOS 10MG/1ML VIAL INJ ONE (08:49)
[2023-03-31] MEDS ORDERED: PROPOFOL 10 MG/ML 20 ML IV ONE (08:50)
[2023-03-31] MEDS ORDERED: MIDAZOLAM HCL 2MG/2ML 2ml VIAL (1mg/ml) IV PRN (09:45)
[2023-03-31] MEDS ORDERED: ePHEDrine SULFATE 50 MG/ML AMP IV PRN (09:45)
[2023-03-31] MEDS ORDERED: diphenhdrAMINE HCL 50 MG/1 ML VL IV PRN (09:45)
[2023-03-31] MEDS ORDERED: DexAMETHasone SOD PHOS 10MG/1ML VIAL INJ IV PRN (09:45)
[2023-03-31] MEDS ORDERED: HYDROmorphone HCL 2 MG/ML VL/or syr IV PRN (09:45)
[2023-03-31] MEDS ORDERED: NALOXONE HCL 0.4 MG/ML VIAL IV PRN (09:45)
[2023-03-31] MEDS ORDERED: LABETALOL HCL 5 MG/ML 4ML SYRINGE IV PRN (09:45)
[2023-03-31] MEDS: ENOXAPARIN SOD 40 MG/0.4 ML SYRINGE SC SCH (10:00)
[2023-03-31] MEDS: THYROID 60 MG TAB PO SCH (10:00)
[2023-03-31] MEDS: PROGESTERONE MICRONIZED 200 MG PO SCH (10:00)
[2023-03-31] MEDS: DOCUSATE SOD 100 MG CAP PO SCH ×2 (10:00→21:23)
[2023-03-31] MEDS ORDERED: PHENYLEPHRINE HCL 10 MG/ML VL IV ONE (13:53)
[2023-03-31] MEDS: SODIUM CHLOR 0.9% PF (SALINE LOCK) 10ML VIAL/SYR IV SCH ×2 (14:00→22:33)
[2023-04-01] VITALS (14 sets, daily range): BP systolic 95–119; BP diastolic 47–70; PULSE 72–96; RESP 16–20; TEMP 98.2–98.6; O2SAT 92–100
[2023-04-01] MEDS: LACTATED RINGER'S 1,000 ML IV SCH ×3 (04:45→20:29)
[2023-04-01] MEDS: SODIUM CHLOR 0.9% PF (SALINE LOCK) 10ML VIAL/SYR IV SCH ×3 (05:08→20:29)
[2023-04-01 06:30] LABS: Basophils # (auto) 0 10 ^3/uL (0-0.2); Basophils % (auto) 0.2 % (0.0-2.0); Eosinophils # (auto) 0 10 ^3/uL (0-0.8); Hematocrit 32.8 % (36.0-46.0); Hemoglobin 11.1 g/dL (12.2-16.2); Lymphocytes % (auto) 7.6 % (10.0-50.0); Mean Corpuscular Hemoglobin 33.3 pg (28.0-32.0); Mean Corpuscular Hgb Conc. 33.7 g/dL (32.0-36.0); Mean Corpuscular Volume 98.9 fL (80.0-100.0); Monocytes % (auto) 7.4 % (0.0-12.0); Neutrophils # (auto) 11.6 10 ^3/uL (1.6-8.6); Neutrophils % (auto) 84.8 % (37.0-80.0); Red Blood Cells 3.32 10^6/uL (4.0-5.20); Red Cell Distribution Width 12.3 % (11.8-14.3); White Blood Cell 13.6 10^3/uL (4.4-10.8)
[2023-04-01 06:45] LABS: Alanine Aminotransferase 20 U/L (7-40); Albumin 3.8 g/dL (3.2-4.8); Alkaline Phosphatase 62 U/L (46-116); Anion Gap 7 (5-15); Aspartate Aminotransferase 31 U/L (13-40); Blood Urea Nitrogen 11 mg/dL (9-23); Calcium 8.9 mg/dL (8.7-10.4); Carbon Dioxide 24 mmol/L (20-30); Chloride 107 mmol/L (98-107); Glucose 136 mg/dL (74-106); Potassium 3.6 mmol/L (3.5-5.1); Sodium 138 mmol/L (136-145)
[2023-04-01 06:46] LABS: Bilirubin, Total 0.3 mg/dL (0.2-1.0); Total Protein 5.9 g/dL (5.7-8.2)
[2023-04-01] MEDS: DOCUSATE SOD 100 MG CAP PO SCH ×2 (08:54→20:29)
[2023-04-01] MEDS: OXYCODONE W/ ACETAMINOPHEN 5/325MG TABLET PO PRN ×3 (08:55→23:02)
[2023-04-01] MEDS: ENOXAPARIN SOD 40 MG/0.4 ML SYRINGE SC SCH (08:55)
[2023-04-01] MEDS: PROGESTERONE MICRONIZED 200 MG PO SCH (09:02)
[2023-04-01] MEDS: THYROID 60 MG TAB PO SCH (09:02)
[2023-04-01] MEDS: HYDROmorphone HCL 2 MG/ML VL/or syr IV PRN ×5 (10:47→20:29)
[2023-04-02] MEDS: HYDROmorphone HCL 2 MG/ML VL/or syr IV PRN ×4 (02:26→17:46)
[2023-04-02] MEDS: OXYCODONE W/ ACETAMINOPHEN 5/325MG TABLET PO PRN ×4 (04:08→21:27)
[2023-04-02 05:00] VITALS: BP 121/58; PULSE 84; RESP 19; TEMP 97.4; O2SAT 98
[2023-04-02 05:10] LABS: Basophils # (auto) 0 10 ^3/uL (0-0.2); Basophils % (auto) 0.2 % (0.0-2.0); Eosinophils # (auto) 0 10 ^3/uL (0-0.8); Eosinophils % (auto) 0.1 % (0.0-7.0); Hematocrit 30.9 % (36.0-46.0); Hemoglobin 10.5 g/dL (12.2-16.2); Lymphocytes # (auto) 1.9 10 ^3/uL (0.4-5.4); Lymphocytes % (auto) 19.3 % (10.0-50.0); Mean Corpuscular Volume 99.8 fL (80.0-100.0); Monocytes # (auto) 1.1 10 ^3/uL (0-1.3); Monocytes % (auto) 10.8 % (0.0-12.0); Neutrophils # (auto) 6.9 10 ^3/uL (1.6-8.6); Neutrophils % (auto) 69.6 % (37.0-80.0); Red Blood Cells 3.09 10^6/uL (4.0-5.20); Red Cell Distribution Width 12.8 % (11.8-14.3); White Blood Cell 9.9 10^3/uL (4.4-10.8)
[2023-04-02] MEDS: SODIUM CHLOR 0.9% PF (SALINE LOCK) 10ML VIAL/SYR IV SCH ×3 (06:30→21:24)
[2023-04-02] MEDS ORDERED: BISACODYL 10 MG RECT SUPP PR PRN (08:00)
[2023-04-02 08:30] VITALS: BP 115/76; PULSE 87; RESP 12; TEMP 98.3; O2SAT 97
[2023-04-02] MEDS: DOCUSATE SOD 100 MG CAP PO SCH ×2 (09:25→21:24)
[2023-04-02] MEDS: ENOXAPARIN SOD 40 MG/0.4 ML SYRINGE SC SCH (09:25)
[2023-04-02] MEDS ORDERED: SODIUM FERR GLUC 62.5MG/5ML 125 MG in SODIUM CHL 0.9% 100 ML IV ONE (09:30)
[2023-04-02] MEDS: THYROID 60 MG TAB PO SCH (10:00)
[2023-04-02] MEDS: PROGESTERONE MICRONIZED 200 MG PO SCH (10:00)
[2023-04-02 11:14] LABS: % Iron Saturation 5.9 % (15-50)
[2023-04-02 12:15] VITALS: BP 112/60; PULSE 78; RESP 18; TEMP 98.2; O2SAT 97
[2023-04-02] MEDS: IRON SUCROSE COMPLEX 100 ML IV SCH (14:23)
[2023-04-02 16:15] VITALS: BP 110/74; PULSE 93; RESP 18; TEMP 98.8; O2SAT 98
[2023-04-02 22:00] VITALS: BP 110/48; PULSE 85; RESP 18; TEMP 98.2; O2SAT 97
[2023-04-03] MEDS: HYDROmorphone HCL 2 MG/ML VL/or syr IV PRN (01:09)
[2023-04-03] MEDS: OXYCODONE W/ ACETAMINOPHEN 5/325MG TABLET PO PRN ×3 (04:03→14:01)
[2023-04-03 05:00] VITALS: BP 109/65; PULSE 86; RESP 18; TEMP 98; O2SAT 96
[2023-04-03] MEDS: SODIUM CHLOR 0.9% PF (SALINE LOCK) 10ML VIAL/SYR IV SCH (06:04)
[2023-04-03 07:05] LABS: Hematocrit 30.6 % (36.0-46.0); Hemoglobin 10.3 g/dL (12.2-16.2)
[2023-04-03 08:30] VITALS: BP 109/58; PULSE 79; RESP 17; TEMP 97.6; O2SAT 95
[2023-04-03] MEDS: DOCUSATE SOD 100 MG CAP PO SCH (08:43)
[2023-04-03] MEDS: ENOXAPARIN SOD 40 MG/0.4 ML SYRINGE SC SCH (08:44)
[2023-04-03] MEDS: PROGESTERONE MICRONIZED 200 MG PO SCH (08:44)
[2023-04-03] MEDS: THYROID 60 MG TAB PO SCH (08:45)
[2023-04-03 09:00] VITALS: BP 109/58; PULSE 79; RESP 17; TEMP 97.6; O2SAT 95
[2023-04-03] MEDS: IRON SUCROSE COMPLEX 100 ML IV SCH (12:00)
[2023-04-03 13:00] VITALS: BP 124/68; PULSE 81; RESP 17; TEMP 98.1; O2SAT 97
[2023-04-03 13:23] VITALS: BP 109/58; PULSE 79; RESP 17; TEMP 97.6; O2SAT 95
== END 2023-04-03 14:50 | disposition home or self-care (01) | DRG 470 ==
LOC: SUR 06:03 → OVERFLOW 10:00 → TELE 10:13 → TELE-CENTR 14:41 → CENTRAL 04-01 13:25
PROVIDERS: ADMIT Orthopaedic Surgery Adult Reconstructive Orthopaedic Surgery; ATTEND Internal Medicine
PROC: 8E0YXBZ Computer Assisted Procedure of Lower Extremity (ICD-10-PCS; 2023-03-31)
PROC: 0SRB0JZ Replacement of Left Hip Joint with Synthetic Substitute, Open Approach (ICD-10-PCS; principal; 2023-03-31 08:29)
DX: M16.12 Unilateral primary osteoarthritis, left hip (principal); E03.9 Hypothyroidism, unspecified; D64.9 Anemia, unspecified; E66.9 Obesity, unspecified; Z68.32 Body mass index [BMI] 32.0-32.9, adult
CPT/HCPCS: 36415; 72170; 73501; 80053; 81001; 82728; 83540; 83550; 85014; 85018; 85025; 85610; 85730; 86850; 86900; 86901; 97110; 97116; 97163; A4565; G0378; J0131; J0330; J1100; J1756; J1885; J2250; J2405; J2704; J3490

== ENCOUNTER 2023-06-16 10:02 | Day surgery (SDC) | payer BC ==
[2023-06-13 15:15] LABS: Basophils # (auto) 0 10 ^3/uL (0-0.2); Basophils % (auto) 0.5 % (0.0-2.0); Eosinophils # (auto) 0 10 ^3/uL (0-0.8); Eosinophils % (auto) 0.6 % (0.0-7.0); Hematocrit 40.1 % (36.0-46.0); Hemoglobin 13.1 g/dL (12.2-16.2); Lymphocytes # (auto) 1.5 10 ^3/uL (0.4-5.4); Lymphocytes % (auto) 19.2 % (10.0-50.0); Mean Corpuscular Hemoglobin 31.7 pg (28.0-32.0); Mean Corpuscular Hgb Conc. 32.8 g/dL (32.0-36.0); Mean Corpuscular Volume 96.5 fL (80.0-100.0); Monocytes # (auto) 0.6 10 ^3/uL (0-1.3); Monocytes % (auto) 7.6 % (0.0-12.0); Neutrophils # (auto) 5.5 10 ^3/uL (1.6-8.6); Neutrophils % (auto) 72.1 % (37.0-80.0); Red Blood Cells 4.15 10^6/uL (4.0-5.20); Red Cell Distribution Width 13.7 % (11.8-14.3); White Blood Cell 7.7 10^3/uL (4.4-10.8)
[2023-06-13 15:21] LABS: Urine Bacteria FEW /hpf (None Seen); Urine Blood Negative /uL (Negative); Urine Clarity Clear (Clear); Urine Color Yellow (Yellow); Urine Protein, UAD Negative (Negative); Urine Specific Gravity 1.026 (1.001-1.035); Urine WBC <1 /hpf (0 - 5); Urine pH 5.5 (5.0-8.0)
[2023-06-13 15:25] LABS: Alanine Aminotransferase 22 U/L (7-40); Alkaline Phosphatase 103 U/L (46-116); Anion Gap 3 (5-15); Aspartate Aminotransferase 19 U/L (13-40); BUN/Creatinine Ratio 16.4 (10.0-20.0); Blood Urea Nitrogen 10 mg/dL (9-23); Carbon Dioxide 30 mmol/L (20-30); Chloride 107 mmol/L (98-107); Glucose 100 mg/dL (74-106); Potassium 3.7 mmol/L (3.5-5.1); Sodium 140 mmol/L (136-145)
[2023-06-13 15:26] LABS: Albumin 4.8 g/dL (3.2-4.8); Bilirubin, Total 0.2 mg/dL (0.2-1.0); Total Protein 7.4 g/dL (5.7-8.2)
[2023-06-13 15:33] LABS: INR 1.01 (0.9-1.15); Partial Thromboplastin Time 29.3 SEC (24.5-34.5); Prothrombin Time 10.6 sec (9.3-11.8)
[~2023-06-16] VITALS: Ht 177.8 cm; Wt 91.2 kg
[~2023-06-16 10:02] MED LIST changes: +HYDR-4902 PO; +TRAM50TA2 PO
[2023-06-16] MEDS ORDERED: PHENYLEPHRINE HCL 10 MG/ML VL IV ONE (10:03)
[2023-06-16] MEDS ORDERED: fentaNYL CITRATE 100 MCG/2 ML VL ONE (10:42)
[2023-06-16] MEDS ORDERED: MIDAZOLAM HCL 2MG/2ML 2ml VIAL (1mg/ml) ONE (10:42)
[2023-06-16] MEDS ORDERED: MEPERIDINE HCL (50 MG/ML) 1 ML VIAL ONE (10:43)
[2023-06-16] MEDS ORDERED: LIDOCAINE 2% JELLY 11ml (GLYDO) ONE (11:00)
[2023-06-16] MEDS ORDERED: DexAMETHasone SOD PHOS 10MG/1ML VIAL INJ ONE (11:18)
[2023-06-16] MEDS ORDERED: PROPOFOL 10 MG/ML 20 ML IV ONE (11:18)
[2023-06-16] MEDS ORDERED: ONDANSETRON HCL 4 MG/2 ML VIAL ONE (11:18)
[2023-06-16] MEDS ORDERED: BUPIVACAINE HCL 50 ML ONE (11:24)
[2023-06-16] MEDS: VANCOMYCIN HCL 1000 MG VL ONE ×2 (11:40)
[2023-06-16 11:59] VITALS: TEMP 97.8; O2SAT 95
[2023-06-16] MEDS ORDERED: LABETALOL HCL 5 MG/ML 4ML SYRINGE IV PRN (12:15)
[2023-06-16] MEDS ORDERED: MIDAZOLAM HCL 2MG/2ML 2ml VIAL (1mg/ml) IV PRN (12:15)
[2023-06-16] MEDS ORDERED: HYDROmorphone HCL 2 MG/ML VL/or syr IV PRN (12:15)
[2023-06-16] MEDS ORDERED: MORPHINE SULFATE 4 MG/ML SYR/VIAL IV PRN (12:15)
[2023-06-16] MEDS ORDERED: ePHEDrine SULFATE 50 MG/ML AMP IV PRN (12:15)
[2023-06-16] MEDS ORDERED: ONDANSETRON HCL 4 MG/2 ML VIAL IV ONE (12:15)
[2023-06-16] MEDS ORDERED: KETOROLAC TROMETH 30 MG/ML 1ML VIAL IV ONE (12:15)
[2023-06-16 13:00] VITALS: BP 92/69; PULSE 78; RESP 12; O2SAT 95
[2023-06-17] MEDS ORDERED: VANCOMYCIN 1GM/200ML 200 ML IV SCH (10:00)
== END 2023-06-16 13:15 | disposition home or self-care (01) ==
LOC: SUR 10:02
PROVIDERS: ATTEND Orthopaedic Surgery Adult Reconstructive Orthopaedic Surgery
DX: L02.416 Cutaneous abscess of left lower limb (principal); S71.002A Unspecified open wound, left hip, initial encounter; B96.5 Pseudomonas (aeruginosa) (mallei) (pseudomallei) as the cause of diseases classified elsewhere; E03.9 Hypothyroidism, unspecified; Z79.890 Hormone replacement therapy; Z79.899 Other long term (current) drug therapy; Z96.653 Presence of artificial knee joint, bilateral; Z96.642 Presence of left artificial hip joint; Z98.890 Other specified postprocedural states; X58.XXXA Exposure to other specified factors, initial encounter; Y93.89 Activity, other specified; Y92.89 Other specified places as the place of occurrence of the external cause; Y99.8 Other external cause status
CPT/HCPCS: 11043; 20100; 36415; 80053; 81001; 85025; 85610; 85730; 87070; 87075; 87077; 87186; 87205; C1713; J1100; J2175; J2250; J2371; J2405; J2704; J3010; J3370; J3490; A4565

== ENCOUNTER → 2023-08-14 | Outpatient (CLI) | payer BC ==
[~2023-08-14] MED LIST changes: +IOHEXOL 300 MG/ML 100ML BOTTLE IJ ONE; +LIDOCAINE 2%HCL (LOCAL ANESTH.) INJ 10ml MDV ONE
[2023-08-14 14:31] LABS: Body Fluid Polymorphonuclear 90 % (0-25); Body Fluid Red Blood Cells 2650 CUMM (0-2000); Body Fluid White Blood Cells 2350 CUMM (0-200)
== END | disposition home or self-care (01) ==
LOC: XYW 08:56
PROVIDERS: ATTEND Orthopaedic Surgery Adult Reconstructive Orthopaedic Surgery
DX: M25.552 Pain in left hip (principal); Z96.642 Presence of left artificial hip joint; Z79.82 Long term (current) use of aspirin; Z96.653 Presence of artificial knee joint, bilateral; Z87.891 Personal history of nicotine dependence; Z98.891 History of uterine scar from previous surgery; Z83.3 Family history of diabetes mellitus; Z82.49 Family history of ischemic heart disease and other diseases of the circulatory system; Z79.899 Other long term (current) drug therapy; Z98.890 Other specified postprocedural states
CPT/HCPCS: 20610; 77002; 83986; 87205; 89051; J2001; 76000